=== PATIENT | female | born 1945 | race Caucasian/White ===

== ENCOUNTER → 2016-08-12 | Outpatient (CLI) | payer MEDICARE, OTHER ==
--- NOTE | 2016-08-12 16:30 | US ---
EXAMINATION TYPE: US kidneys/renal and bladder DATE OF EXAM: 08/12/2016 3:56 PM COMPARISON: Previous study dated 10/02/2015. CLINICAL HISTORY: Chronic Kidney Disease stage 3 N18.3. CKD, abnormal labs, hx of renal cysts and h ydronephrosis EXAM MEASUREMENTS: Right Kidney: 10.0 x 4.3 x 4.4 cm Left Kidney: 10.1 x 4.7 x 4.8 cm Right Kidney: Appears lobular. Mild hydronephrosis seen. Two cystic lesions. 1- Upper = 0.9 x 1.0 x 0.8 cm. 2- Lateral, lower = 1.4 x 1.3 x 1.1 cm Left Kidney: Two cystic lesions. 1- lateral, lower = 1.3 x 1.4 x 1.2 cm. 2- 1.0 x 1.3 x 1.3 cm Bladder: distended. wnl as visualized. Bilateral Jets not seen There is stable, mild right-sided hydronephrosis. There are 2, stable simple appearing left renal cys t. There are ureteral jets were not visualized. IMPRESSION: STABLE EXAM.
== END | disposition home or self-care (01) ==
LOC: RADUSWWP 15:23
PROVIDERS: ATTEND Internal Medicine Nephrology
DX: N18.3 Chronic kidney disease, stage 3 (moderate) (principal)
CPT/HCPCS: 76770

== ENCOUNTER → 2017-03-31 | Outpatient (CLI) | payer MEDICARE, OTHER ==
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
== END | disposition home or self-care (01) ==
LOC: RADBDWWP 07:06
PROVIDERS: ATTEND Family Medicine
DX: Z00.01 Encounter for general adult medical examination with abnormal findings (principal); M85.89 Other specified disorders of bone density and structure, multiple sites
CPT/HCPCS: 77080

== ENCOUNTER → 2018-02-03 | Outpatient (CLI) | payer MEDICARE, OTHER ==
[2018-02-03 19:43] LABS: Anion Gap 9.2 mmol/L (4.00-12.00); Calcium 9.7 mg/dL (8.7-10.3); Carbon Dioxide 25.8 mmol/L (21.6-31.8); Potassium 4.7 mmol/L (3.5-5.5)
== END | disposition home or self-care (01) ==
LOC: LABWHC1 13:48
PROVIDERS: ATTEND Internal Medicine Nephrology
DX: N18.3 Chronic kidney disease, stage 3 (moderate) (principal)
CPT/HCPCS: 36415; 80048

== ENCOUNTER 2018-02-08 17:04 | Emergency (ER) | payer OTHER, MEDICARE ==
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
[2018-02-08] MEDS ORDERED: HYDROmorphone 1 MG/ML 1 ML SYRINGE IVP STA (17:24)
[2018-02-08] MEDS ORDERED: SODIUM CHLORIDE 0.9% 1,000 ML IV STA (17:24)
[2018-02-08 18:37] LABS: Basophils # (A) 0.1 k/uL (0-0.2); Basophils % (A) 0 %; Eosinophils # (A) 0.2 k/uL (0-0.7); Eosinophils % (A) 2 %; HCT 38.3 % (34.0-46.0); HGB 11.9 gm/dL (11.4-16.0); Lymphocytes # (A) 1.3 k/uL (1.0-4.8); Lymphocytes % (A) 10 %; MCH 30.4 pg (25.0-35.0); MCHC 31.1 g/dL (31.0-37.0); MCV 97.7 fL (80.0-100.0); Mean Platelet Volume 7.2; Monocytes # (A) 0.6 k/uL (0-1.0); Monocytes % (A) 4 %; Neutrophils # (A) 11.1 k/uL (1.3-7.7); Neutrophils % (A) 83 %; Platelet Count 321 k/uL (150-450); RBC 3.92 m/uL (3.80-5.40); RDW 13.4 % (11.5-15.5); WBC 13.4 k/uL (3.8-10.6)
[2018-02-08 18:42] LABS: Prothrombin Time 9.7 sec (9.0-12.0)
[2018-02-08 18:44] LABS: ALT 226 U/L (9-52); AST 379 U/L (14-36); Alcohol <10 mg/dL; Alkaline Phosphatase 108 U/L (38-126); Anion Gap 10 mmol/L; Blood Urea Nitrogen 27 mg/dL (7-17); Calcium 9.3 mg/dL (8.4-10.2); Carbon Dioxide 21 mmol/L (22-30); Chloride 109 mmol/L (98-107); Glucose 156 mg/dL (74-99); Potassium 5.1 mmol/L (3.5-5.1); Sodium 140 mmol/L (137-145); Total Bilirubin 0.4 mg/dL (0.2-1.3); Total Protein 6.9 g/dL (6.3-8.2)
[2018-02-08 18:57] LABS: Creatine Kinase 543 U/L (30-135)
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
[2018-02-08 19:06] LABS: Partial Thromboplastin Time 18.1 sec (22.0-30.0)
[2018-02-08 19:10] LABS: Creatine Kinase MB 8.5 ng/mL (0.0-2.4); Troponin I <0.012 ng/mL (0.000-0.034)
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
[2018-02-08 19:39] VITALS: TEMP 97.8
[2018-02-08 19:45] LABS: Amorphous Sediment,Urine Occasional /hpf; Appearance,Urine Cloudy (Clear); Bilirubin,Urine Negative (Negative); Blood,Urine Moderate (Negative); Color,Urine Yellow; Glucose,Urine (UA) Negative (Negative); Granular Casts,Urine 75 /lpf (0); Hyaline Casts,Urine 185 /lpf (0-2); Ketones,Urine Negative (Negative); Leukocyte Esterase,Urine Negative (Negative); Mucus,Urine Rare /hpf; Nitrite,Urine Negative (Negative); Protein,Urine 2+ (Negative); RBC,Urine 24 /hpf (0-5); Specific Gravity,Urine 1.029 (1.001-1.035); Squamous Epithelial Cell,Urine 2 /hpf (0-4); Urobilinogen,Urine <2.0 mg/dL (<2.0); WBC,Urine 49 /hpf (0-5)
[2018-02-08 19:47] LABS: Amphetamine Screen,Urine Not Detected (NotDetected); Barbiturate Screen,Urine Not Detected (NotDetected); Benzodiazepines Screen,Urine Not Detected (NotDetected); Cocaine Screen,Urine Not Detected (NotDetected); Methadone Screen, Urine Not Detected (NotDetected); Opiate Screen,Urine Detected (NotDetected); Oxycodone Screen, Urine Not Detected (NotDetected); Phencyclidine Screen,Urine Not Detected (NotDetected); Tricyclic Antidepressant,Urine Not Detected (NotDetected); Urn Cannabinoid Scrn Not Detected (NotDetected)
[2018-02-08 20:04] VITALS: BP 121/87; PULSE 105; RESP 22
== END 2018-02-08 20:31 | disposition other institution (70) ==
LOC: EC 17:04
DX: S36.039A Unspecified laceration of spleen, initial encounter (principal); M43.12 Spondylolisthesis, cervical region; I50.9 Heart failure, unspecified; K21.9 Gastro-esophageal reflux disease without esophagitis; E78.5 Hyperlipidemia, unspecified; Z79.899 Other long term (current) drug therapy; Z85.3 Personal history of malignant neoplasm of breast; Z92.21 Personal history of antineoplastic chemotherapy; V47.6XXA Car passenger injured in collision with fixed or stationary object in traffic accident, initial encounter; W22.12XA Striking against or struck by front passenger side automobile airbag, initial encounter; Y92.410 Unspecified street and highway as the place of occurrence of the external cause
CPT/HCPCS: 96361 ×2; 96374 ×2; 99291 ×2; 36415; 93005; 86900; 86901; 80053; 82550; 82553; 83605; 84484; 85025; 85610; 85730; 86850; 81001; 80306; 80320; 72125; 70450; 71260; 74177; J1170; Q9967